=== PATIENT | male | born 1960 | race Caucasian/White ===

== ENCOUNTER 2018-06-22 23:32 | Inpatient (IN) | payer MEDICAID ==
[~2018-06-22] VITALS: Ht 165.1 cm; Wt 98.9 kg
[2018-06-23] VITALS (7 sets, daily range): BP systolic 133–198; BP diastolic 77–98; Ht 165.1 cm; Wt 98.9 kg
[2018-06-23 01:17] LABS: BASOPHIL % 0.6 % (0-2); PLATELET COUNT 171 x10^3mcL (130-400)
[2018-06-23 01:29] LABS: CALCIUM 8.9 mg/dL (8.5-10.1); CARBON DIOXIDE 29.5 mmol/L (21-32); CHLORIDE SERUM 104 mmol/L (98-107); CREATININE SERUM 1.1 mg/dL (0.7-1.3); GFR1 > 60 mL/min; GLUCOSE SERUM 131 mg/dL (74-106); POTASSIUM SERUM 3.6 mmol/L (3.5-5.1); SODIUM SERUM 142 mmol/L (136-145)
[2018-06-23 01:31] LABS: ALKALINE PHOSPHATASE 92 U/L (46-116); ALT/SGPT 34 U/L (16-63); AST/SGOT 22 U/L (15-37); BILIRUBIN TOTAL 0.3 mg/dL (0.20-1.00); TOTAL PROTEIN, SERUM 7.4 g/dL (6.4-8.2)
[2018-06-23 01:34] LABS: CHOLESTEROL 235 mg/dL (<200); CHOLESTEROL/HDL RATIO 8.7; HDL CHOLESTEROL 27 mg/dL (40-60); TRIGLYCERIDES 640 mg/dL (<150)
[2018-06-23] MEDS ORDERED: ALLOPURINOL100 MG (02:37)
[2018-06-23 03:11] LABS: MAGNESIUM 2.1 mg/dL (1.8-2.4); PHOSPHOROUS 3.7 mg/dL (2.5-4.9)
[2018-06-23 05:56] LABS: AMPHETAMINE QUAL UR NONE DETECTED (See below)
[2018-06-24 04:57] VITALS: BP 119/78
[2018-06-24 09:50] VITALS: BP 151/70
[2018-06-24 10:18] LABS: RED CELL DISTRIBUTION WIDTH 12.9 % (11.5-14.5)
[2018-06-24 10:20] LABS: BASOPHIL % 0.6 % (0-2); PLATELET COUNT 159 x10^3mcL (130-400)
[2018-06-24 10:30] LABS: CALCIUM 9.3 mg/dL (8.5-10.1); CARBON DIOXIDE 26.2 mmol/L (21-32); CHLORIDE SERUM 104 mmol/L (98-107); CREATININE SERUM 0.9 mg/dL (0.7-1.3); GFR1 > 60 mL/min; GLUCOSE SERUM 121 mg/dL (74-106); POTASSIUM SERUM 3.6 mmol/L (3.5-5.1); SODIUM SERUM 141 mmol/L (136-145)
[2018-06-24 13:22] VITALS: BP 123/64
[2018-06-24 17:36] VITALS: BP 132/82
[2018-06-24 21:09] VITALS: BP 145/82
[2018-06-25] VITALS (8 sets, daily range): BP systolic 143–165; BP diastolic 74–104
[2018-06-25 06:29] LABS: BASOPHIL % 0.5 % (0-2); PLATELET COUNT 163 x10^3mcL (130-400); RED CELL DISTRIBUTION WIDTH 13.1 % (11.5-14.5)
[2018-06-25 06:43] LABS: CALCIUM 8.7 mg/dL (8.5-10.1); CARBON DIOXIDE 28.5 mmol/L (21-32); CHLORIDE SERUM 103 mmol/L (98-107); CREATININE SERUM 0.9 mg/dL (0.7-1.3); GFR1 > 60 mL/min; GLUCOSE SERUM 106 mg/dL (74-106); POTASSIUM SERUM 3.6 mmol/L (3.5-5.1); SODIUM SERUM 140 mmol/L (136-145)
[2018-06-26] VITALS (9 sets, daily range): BP systolic 142–175; BP diastolic 81–97
[2018-06-26 06:23] LABS: BASOPHIL % 0.7 % (0-2); PLATELET COUNT 157 x10^3mcL (130-400); RED CELL DISTRIBUTION WIDTH 12.9 % (11.5-14.5)
[2018-06-26 06:31] LABS: CALCIUM 8.6 mg/dL (8.5-10.1); CARBON DIOXIDE 26.7 mmol/L (21-32); CHLORIDE SERUM 104 mmol/L (98-107); GFR1 > 60 mL/min; GLUCOSE SERUM 101 mg/dL (74-106); POTASSIUM SERUM 3.6 mmol/L (3.5-5.1); SODIUM SERUM 140 mmol/L (136-145)
[2018-06-27] VITALS (8 sets, daily range): BP systolic 140–181; BP diastolic 83–109
[2018-06-27 06:35] LABS: CALCIUM 8.6 mg/dL (8.5-10.1); CARBON DIOXIDE 27.7 mmol/L (21-32); CHLORIDE SERUM 106 mmol/L (98-107); GFR1 > 60 mL/min; GLUCOSE SERUM 96 mg/dL (74-106); POTASSIUM SERUM 3.9 mmol/L (3.5-5.1); SODIUM SERUM 141 mmol/L (136-145)
[2018-06-27 06:47] LABS: BASOPHIL % 0.6 % (0-2); PLATELET COUNT 144 x10^3mcL (130-400); RED CELL DISTRIBUTION WIDTH 12.7 % (11.5-14.5)
[2018-06-27] MEDS ORDERED: ZESTRIL20 MG PO (14:28)
[2018-06-27] MEDS ORDERED: LIPITOR80 MG PO (14:29)
[2018-06-27] MEDS ORDERED: METOPROLOL TART25 M1 PO (14:29)
[2018-06-27] MEDS ORDERED: GOOD SENSE ASPI81 M3 PO (14:29)
== END 2018-06-27 16:17 | disposition short-term general hospital (02) | DRG 190 ==
LOC: ED 23:32 → DU 06-23 02:38
PROVIDERS: Emergency Medicine; Internal Medicine; ADMIT General Practice
DX: I21.4 Non-ST elevation (NSTEMI) myocardial infarction (principal); D69.3 Immune thrombocytopenic purpura; E11.65 Type 2 diabetes mellitus with hyperglycemia; E78.5 Hyperlipidemia, unspecified; I10 Essential (primary) hypertension; M10.9 Gout, unspecified; F14.21 Cocaine dependence, in remission; Z79.82 Long term (current) use of aspirin; Z68.33 Body mass index [BMI] 33.0-33.9, adult
CPT/HCPCS: 82962; J1650; J3490; J7030; Q0092